=== PATIENT | female | born 1965 | race Two or more races ===

== ENCOUNTER 2017-09-07 20:02 | Emergency (ER) | payer OTHER ==
[~2017-09-07] VITALS: Ht 165.1 cm; Wt 63.5 kg
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
[2017-09-07 20:33] LABS: BASOPHILS % (AUTO) 0.7 % (0.0-2.0); HEMATOCRIT 38 % (33-45); HEMOGLOBIN 13.3 g/dL (11.5-14.8); LYMPHOCYTES % (AUTO) 32.1 % (20.0-44.0); MEAN CORPUSCULAR HGB CONC 35 g/dl (31.0-36.0); MEAN CORPUSCULAR VOLUME 89 fL (82-100); MONOCYTES # (AUTO) 0.3 /CMM (0.1-1.30); MONOCYTES % (AUTO) 5.1 % (2.0-12.0); NEUTROPHILS # (AUTO) 3.9 /CMM (1.8-8.9); NEUTROPHILS % (AUTO) 60.1 % (43.0-81.0); PLATELET COUNT (AUTO) 209 /CMM (150-450); RDW COEFFICIENT OF VARIATION 12.3 (11.5-15.0); RED BLOOD CELL COUNT(AUTO) 4.29 MIL/uL (4.0-5.2); WHITE BLOOD COUNT (AUTO) 6.3 K/uL (4.3-11.0)
[2017-09-07 20:48] LABS: INR 0.94 (0.85-1.15)
[2017-09-07 20:49] LABS: CALCIUM, SERUM 8.9 mg/dL (8.5-10.1); CREATININE 0.7 mg/dL (0.6-1.3); POTASSIUM 3.6 mmol/L (3.5-5.1)
[2017-09-07 20:54] LABS: TROPONIN I 0.017 ng/mL (0.00-0.056)
[2017-09-07 21:00] LABS: MAGNESIUM 1.8 mg/dL (1.8-2.4)
[2017-09-07 21:05] LABS: THYROID STIMULATING HORMONE 1.971 uIU/mL (0.358-3.74)
--- NOTE | 2017-09-07 21:17 | NUR ---
[facility], EXPECTING A CALL BACK FROM A [facility]ORE
--- NOTE | 2017-09-07 22:17 | NUR ---
[facility] ER; DR. LONDONO; ETA [address] [facility]
[2017-09-07 22:35] VITALS: BP 120/90
--- NOTE | 2017-09-07 22:40 | NUR ---
REPORT GIVEN TO BETTE LUX FOR SAL
[2017-09-07] MEDS ORDERED: IBUPROFEN 400 MG TABLET ONE (23:02)
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
--- NOTE | 2017-09-07 23:16 | NUR ---
TRANSPORT BEDSIDE TO TRANSFER PT. REPORT GIVEN TO EMS CREW. PT TRANSFERRED ONTO EMS GURNEY.
--- NOTE | 2017-09-07 23:16 | NUR ---
Patient Tranfers to outside Facility Physician: DR. LONDONO Location:[facility].
[2017-09-07] MEDS ORDERED: IBUPROFEN 400 MG TABLET PO ONE (23:30)
== END 2017-09-07 23:25 | disposition short-term general hospital (02) ==
LOC: ER 20:03
DX: I47.1 Supraventricular tachycardia (principal); F17.200 Nicotine dependence, unspecified, uncomplicated
CPT/HCPCS: 36415; 71045; 80048; 83735; 84443; 84484; 85025; 85730; 93005; 99285; A4606; Z7610